=== PATIENT | male | born 1985 | race Caucasian/White ===

== ENCOUNTER 2018-05-12 22:56 | Emergency (ER) | payer MEDICAID ==
[~2018-05-12] VITALS: Ht 180.3 cm; Wt 72.6 kg
[2018-05-12 23:00] VITALS: BP 144/84
[2018-05-12] MEDS ORDERED: IBUPROFEN600 MG ORAL (23:48)
--- NOTE | 2018-05-12 23:49 | Emergency Room Report ---
History of Present Illness General Chief Complaint: Laceration Source: Patient Present Illness HPI Is a 32-year-old male who is right-hand dominant. He presents with chief complaint of laceration to the left thumb. He was cutting paper and actually cut the tip of his left thumb. Onset was acute and occurred about an hour ago. Minimal bleeding. Pain is throbbing in nature. Worse with movement. Better with pressure. Tetanus was beginning of a year. No other complaint. No other injury. Allergies: Coded Allergies: No Known Allergies (Unverified , 05/12/18) Patient History Past Medical History: none, see triage record, old chart reviewed Past Surgical History: none Pertinent Family History: none Social History: Denies: smoking Immunizations: UTD Reviewed Nursing Documentation: PMH: Agreed; PSxH: Agreed Nursing Documentation-PMH Past Medical History: No Stated History Review of Systems Eye: Denies: eye pain, blurred vision ENT: Denies: ear pain, nose congestion, throat swelling Respiratory: Denies: cough, shortness of breath Cardiovascular: Denies: chest pain, palpitations Gastrointestinal: Denies: abdominal pain, diarrhea, nausea, vomiting Musculoskeletal: Denies: back pain, joint pain Skin: Denies: rash Neurological: Denies: headache, numbness Endocrine: Denies: increased thirst, increased urine Hematologic/Lymphatic: Denies: easy bruising All Other Systems: negative except mentioned in HPI Physical Exam Vital Signs Date Time Temp Pulse Resp B/P (MAP) Pulse Ox O2 Delivery O2 Flow Rate FiO2 05/12/18 22:59 98.1 85 14 144/84 99 Room Air vitals normal Sp02 EP Interpretation: reviewed, normal General Appearance: well appearing, no apparent distress, alert Head: normocephalic, atraumatic Eyes: bilateral eye PERRL, bilateral eye EOMI ENT: hearing grossly normal, normal pharynx Neck: full range of motion, supple, no meningismus Respiratory: chest non-tender, lungs clear, normal breath sounds Cardiovascular #1: regular rate, rhythm, no murmur Gastrointestinal: normal bowel sounds, non tender, no mass, no organomegaly, no bruit, non-distended Musculoskeletal: back normal, gait/station normal, normal range of motion, other - Left thumb: There is skin avulsion at the tip of the thumb. No active bleeding. Nothing to be sutured. This measured about 1 cm. Psychiatric: mood/affect normal Skin: warm/dry Medical Decision Making Diagnostic Impression: Primary Impression: Avulsion of skin of thumb without complication Qualified Codes: S61.002A - Unspecified open wound of left thumb without damage to nail, initial encounter ER Course Patient with skin avulsion. I put a pressure dressing. Nothing to be sutured. No bony involvement. We'll discharge home. Last Vital Signs Date Time Temp Pulse Resp B/P (MAP) Pulse Ox O2 Delivery O2 Flow Rate FiO2 05/12/18 22:59 98.1 85 14 144/84 99 Room Air Disposition: HOME, SELF-CARE Condition: Stable Scripts Ibuprofen* (MOTRIN*) 600 Mg Tablet 600 MG ORAL THREE TIMES A DAY, #30 TAB 0 Refills Prov: Harjinder Allen MD 05/12/18 Referrals: [facility],REFERRING (PCP) Patient Instructions: Nonsutured Laceration Care Additional Instructions: Elevate hand. Hold pressure bleeding. Return if symptom worsen. Harjinder Allen MD May 12, 2018 23:49
[2018-05-12 23:55] VITALS: BP 144/84
== END 2018-05-12 23:55 | disposition home or self-care (01) ==
LOC: EMR 23:20
DX: S61.012A Laceration without foreign body of left thumb without damage to nail, initial encounter (principal); W45.8XXA Other foreign body or object entering through skin, initial encounter; Y92.9 Unspecified place or not applicable
CPT/HCPCS: 99282